=== PATIENT | female | born 2000 | race African-American/Black ===

== ENCOUNTER 2023-04-13 17:55 | Emergency (ER) | payer OTHER ==
[~2023-04-13] VITALS: Ht 172.7 cm; Wt 100.0 kg
[2023-04-13] MEDS ORDERED: dexamethasone sod phosphate 10mg/ml inj PO STA (21:21)
[2023-04-13] MEDS ORDERED: amox tr/potassium clavulanate 875/125mg TAB PO ONE (21:25)
[2023-04-13] MEDS ORDERED: amoxicillin 250mg capsule PO ONE (21:35)
[2023-04-13] MEDS ORDERED: AMOX500C2 PO (21:46)
[2023-04-13 21:49] VITALS: BP 133/80
== END 2023-04-13 21:51 | disposition home or self-care (01) ==
LOC: ER 17:56
DX: J02.9 Acute pharyngitis, unspecified (principal); K13.79 Other lesions of oral mucosa
CPT/HCPCS: 87081; 87880; 99283; J1100